=== PATIENT | male | born 1995 | race Caucasian/White ===

== ENCOUNTER 2017-07-12 03:25 | Emergency (ER) | payer OTHER ==
[2017-07-12 03:35] VITALS: O2SAT 95
--- NOTE | 2017-07-12 03:39 | EMERGENCY ROOM VISIT NOTE ---
History Report prepared by Nathanael: Osvaldo Peralta Under the Supervision of: Dr. Micha Alexandre M.D. First contact with patient: 03:26 Chief Complaint: ALCOHOL OVERDOSE Stated Complaint: ALCOHOL History of Present Illness The patient is a 21 year old male who presents to the Emergency Room with complaints of an episode of alcohol intoxication occurring tonight. The patient states that he is not in any pain and did not use any drugs tonight. Per EMS, police found the patient unable to get into his door, prompting the patient being brought into the emergency department tonight. HPI limited secondary to alcohol intoxication. Source of History: patient History Limited By: intoxication (alcohol intoxication) Onset: tonight Position: other (global) Quality: other (alcohol intoxication) Timing: constant Note: The patient reports no pain. Review of Systems ROS limited secondary to alcohol intoxication. Past Medical & Surgical Medical Problems: (1) No chronic problems Family History No pertinent family history stated. Social History Smoking Status: Never Smoker Alcohol Use: heavy Drug Use: none Occupation Status: student Current/Historical Medications Unable to Obtain Active Prescriptions or Reported Meds Allergies Coded Allergies: No Known Allergies (Unverified , 07/12/17) Physical Exam Vital Signs Date Time Temp Pulse Resp B/P (MAP) Pulse Ox O2 Delivery O2 Flow Rate FiO2 07/12/17 07:06 77 07/12/17 06:35 94 14 94 07/12/17 06:31 104/54 07/12/17 06:05 75 18 92 07/12/17 06:00 82 19 101/43 92 07/12/17 05:30 78 18 96/48 92 07/12/17 05:17 96 17 123/80 94 Room Air 07/12/17 04:55 90 17 94 07/12/17 03:55 108 18 96 07/12/17 03:37 133/80 07/12/17 03:35 36.8 122 20 133/80 95 Room Air 07/12/17 03:35 95 Room Air 07/12/17 03:35 125 Physical Exam GENERAL: Patient is heavily intoxicated. Smells of alcohol. Well appearing and in no acute distress. HEAD: No evidence of Trauma. AT/NC EYES: Injected conjunctiva. Normal EOM. Pupils equal/reactive. ENT: Mucous membranes moist, no nasal congestion, . NECK: No step-offs, no adenopathy, no meningismus, trachea is midline. LUNGS: No dyspnea. Clear to auscultation and equal bilaterally. No wheeze, no rhonchi. HEART: Regular rate and rhythm. No murmurs, rubs, gallops appreciated. ABDOMEN: Soft, nontender, bowel sounds positive, no masses appreciated, no peritonitis. BACK: No midline tenderness, no CVA tenderness. Faint abrasions over low back, nontender, no lacerations. EXTREMITIES: Normal motion all extremities, no cyanosis, no edema. NEUROLOGIC: Intoxicated. Awake, alert, oriented. Stuttering, slurred speech, no focal weakness, cranial nerves grossly intact. Somewhat oriented. SKIN: No rash, no jaundice, no diaphoresis. Medical Decision & Procedures Laboratory Results 07/12/17 03:39 Test 07/12/17 03:39 Anion Gap 8.0 mmol/L (3-11) Estimated GFR () 141.3 Estimated GFR (Non- 121.9 BUN/Creatinine Ratio 14.8 (10-20) Calcium Level 8.5 mg/dl (8.5-10.1) Ethyl Alcohol mg/dL 339.0 mg/dl (0-3) Laboratory results as reviewed by me. ED Course 0329: The patient was evaluated in room B12. A complete history and physical exam was performed. 0408: I reevaluated and updated the patient. He is sleeping and not in any distress. 0630: The patient will be discharged when awake and oriented. Medical Decision Differential: Alcohol Intoxication, Drug Intoxication, Electrolyte Abnormality, Trauma, Intracranial Event, Toxicological, Excited Delirium, Serotonin Syndrome , amongst other pathologies entertained. 21 yr old intoxicated male brought in by EMS after police found him unable to get in to an [place] he was so intoxicated. Other than some mild abrasions over low back, patient with no evidence nor history for trauma. Protecting airway and breathing comfortably throughout ED stay. EtOH positive. Monitored and discharged when awake, alert, oriented and denies any complaints. Blood Pressure Screening Patient's blood pressure: Normal blood pressure Blood pressure disposition: Did not require urgent referral Impression Primary Impression: Alcohol abuse Additional Impression: Alcohol use with intoxication Scribe Attestation The scribe's documentation has been prepared under my direction and personally reviewed by me in its entirety. I confirm that the note above accurately reflects all work, treatment, procedures, and medical decision making performed by me. Departure Information Dispostion Home / Self-Care Prescriptions Unable to Obtain Active Prescriptions or Reported Meds Referrals No Doctor, Assigned (PCP) Patient Instructions [facility] Additional Instructions You were evaluated in emergency department for intoxication. This is a sign of Alcohol Abuse and should not be taken lightly. You had a blood alcohol level that was significantly elevated. Over the next 24 hours keep well hydrated and eat light meals. Don't drink any more alcohol. This is important. Please discuss this visit with your Primary Care Provider, [facility] and/or your loved ones. Unless an exceptional circumstance, the Hospital DOES NOT contact anyone DURING your visit, nor is your Protected Medical Information released to anyone without your approval/request. This means we do not contact your Parents, the Police, etc. However, you will likely receive a bill from the Hospital and/or your Insurance company, which will usually be sent to the Primary Policy Guillaume (often one's Parents). Furthermore, as a student, your visit report will likely be sent to [facility] as your primary care provider, unless other Provider listed. If your incident was on campus, or if the Police were involved, they will often contact the University to make them aware of what happened. Often this will result in you being required to take Alcohol Education classes (ie BASICS class) . Please see information given to you at discharge regarding contact for this. If the Police were involved you will likely be cited for public intoxication. Please contact either [facility] Police or the [employer] Police for further information. Call 911 or return to Emergency Department if you develop: Passing out, difficulty breathing, many episodes of vomiting, blood in vomit or stool, abdominal pain, fevers, or other severe symptoms. We are always here to help if you feel you need further evaluation or treatment. Problem Qualifiers
[2017-07-12 04:08] LABS: BLOOD UREA NITROGEN 13 mg/dl (7-18); CALCIUM 8.5 mg/dl (8.5-10.1); CARBON DIOXIDE 24 mmol/L (21-32); CREATININE 0.88 mg/dl (0.60-1.40); GLUCOSE 115 mg/dl (70-99); POTASSIUM 3.8 mmol/L (3.5-5.1); SODIUM 138 mmol/L (136-145)
[2017-07-12 09:59] VITALS: BP 125/107; PULSE 70; TEMP 36.8; O2SAT 95
== END 2017-07-12 10:00 | disposition home or self-care (01) ==
LOC: EDBD 03:25 → C.EDB 03:27
DX: F10.10 Alcohol abuse, uncomplicated (principal); F10.129 Alcohol abuse with intoxication, unspecified; Y90.8 Blood alcohol level of 240 mg/100 ml or more